=== PATIENT | female | born 1965 | race Caucasian/White ===

== ENCOUNTER 2018-05-03 09:02 | Day surgery (SDC) | payer OTHER ==
[2018-05-03] MEDS ORDERED: LIDOCAINE 4% SOLUTION 50 ML BTL (10:39)
[2018-05-03] MEDS ORDERED: MIDAZOLAM 1 MG/ML 2 ML INJ ×2 (11:25)
[2018-05-03] MEDS ORDERED: FENTAnyl 50 MCG/ML VIAL (11:25)
== END 2018-05-03 15:09 | disposition home or self-care (01) ==
LOC: GIL 09:02
DX: Z12.11 Encounter for screening for malignant neoplasm of colon (principal); D12.4 Benign neoplasm of descending colon; K20.8 Other esophagitis; K29.30 Chronic superficial gastritis without bleeding
CPT/HCPCS: 43239; 84703; 88305